=== PATIENT | male | born 1970 | race Caucasian/White ===

== ENCOUNTER → 2018-07-15 | Outpatient (CLI) | payer BC ==
--- NOTE | 2018-07-15 11:03 | DIAGNOSTIC IMAGING REPORT ---
L INJ MAJOR JNT SHLDR,HIP,KNEE CLINICAL HISTORY: LEFT HIP, DJD,2CC CELSTONE, 8CC MARCAINEpain COMPARISON STUDY: None FLUOROSCOPY TIME: 19 seconds. FINDINGS: Following description of procedure and informed consent, a 25-gauge needle was inserted to the left hip joint space. A test injection confirmed its intra-articular location. This is followed by the prescribed steroid combination injection. There are no complications. IMPRESSION: Successful therapeutic injection left hip. No complications at the time of the procedure. The above report was generated using voice recognition software. It may contain grammatical, syntax or spelling errors. Electronically signed by: Aldo Winters M.D. 07/15/2018 11:01 AM Dictated Date/Time: 07/15/2018 11:00 AM
== END | disposition home or self-care (01) ==
LOC: C.RADBC 09:56
PROVIDERS: ATTEND Orthopaedic Surgery
DX: M16.12 Unilateral primary osteoarthritis, left hip (principal)

== ENCOUNTER 2019-11-17 10:44 | Observation (INO) ==
--- NOTE | 2019-10-19 15:04 | PAT Medication Instructions ---
Medication Instructions Date of Service October 19, 2019 Home Medications Medication Instructions Recorded azithromycin 250 mg tablet See Rx Instructions PO .COMPLEX #6 10/14/19 tab promethazine-DM 6.25 mg-15 mg/5 mL See Rx Instructions PO Q6H PRN 10/14/19 oral syrup #200 ml Inhaler 1 puff INHALATION UD PRN ascorbic acid (vitamin C) [Vitamin C] 500 mg PO DAILY azithromycin 250 mg tablet See Rx Instructions PO .COMPLEX ibuprofen 200 - 400 mg PO UD PRN promethazine-DM 6.25 mg-15 mg/5 mL oral syrup See Rx Instructions PO Q6H PRN Continue as directed azithromycin 250 mg tablet See Rx Instructions PO .COMPLEX ASK your surgeon for instructions ibuprofen 200 - 400 mg PO UD PRN DO NOT take the morning of surgery ascorbic acid (vitamin C) [Vitamin C] 500 mg PO DAILY Take morning of surgery With a small sip of water, OTHERWISE NOTHING TO EAT OR DRINK AFTER MIDNIGHT: Inhaler 1 puff INHALATION UD PRN (if needed) promethazine-DM 6.25 mg-15 mg/5 mL oral syrup See Rx Instructions PO Q6H PRN (if needed) Take evening before surgery Inhaler 1 puff INHALATION UD PRN (if needed) promethazine-DM 6.25 mg-15 mg/5 mL oral syrup See Rx Instructions PO Q6H PRN (if needed) Other Notes If you have any questions please call us at [phone] or [phone] or [phone] or [phone]
--- NOTE | 2019-10-20 08:21 | Anesthesiology Consultation ---
Date of Service October 20, 2019 Assessment & Plan (1) Encounter for pre-operative examination: Chart Review Chart Review: Acceptable Risk for Surgery and Patient seen in Pre Admission Testing Teaching & Discussion Instructed NPO after midnight before surgery, except medications with 15 cc of water. Medication instructions provided according to the PAT guidelines. History Surgery Operation Date: 11/17/19 11:30 Proposed Procedures p Left Anterior Total Hip Arthroplasty - Pravin Dinh DO Height/Weight Height: 5 ft 9 in Weight: 89.6 kg Allergies Allergy/AdvReac Type Severity Reaction Status Date / Time No Known Allergies Allergy Verified 10/14/19 11:15 Medications Home Medications Medication Instructions Recorded Confirmed Last Taken Inhaler 1 puff INHALATION UD PRN 10/14/19 10/14/19 Unknown ascorbic acid (vitamin C) [Vitamin 500 mg PO DAILY 10/14/19 10/14/19 Unknown C] azithromycin 250 mg tablet See Rx Instructions PO .COMPLEX #6 10/14/19 10/14/19 Unknown tab ibuprofen 200 - 400 mg PO UD PRN 10/14/19 10/14/19 Unknown promethazine-DM 6.25 mg-15 mg/5 mL See Rx Instructions PO Q6H PRN 10/14/19 10/14/19 Unknown oral syrup #200 ml Past Medical History Medical History (Updated 10/21/19 @ 10:14 by Carrillo Sanders) Arthritis Bronchitis CURRENT "MILD," SEEN BY PCP, FINISHED Z PAC. almost entirely resolved as of [facility] appt 10/20. Lungs CTA on exam. HX BRONCHITIS 2-3 X YR - USES INHALER PRN WINTER MONTHS History of kidney stones X1/PASSED ON OWN Nausea and vomiting after administration of anesthetic agent Exercise / Class Metabolic Activity II 4-5 Yardwork/Stairs/Walk up hill (Denies CP or SOb with 1 FOS) Past Family History Family History Mother Breast cancer Grandfather Colon cancer Prostate cancer Other Family history of diabetes mellitus in grandmother Past Surgical History Surgical History History of wisdom tooth extraction Past Anesthesia History No Hx of Anesthesia Complications (other than PONV) and No Family Hx of Anesthesia Complications History of PONV No Hx of Motion Sickness and History of PONV Social History Smoking Status: Never smoker Do You Dip or Chew Tobacco: No Hx Alcohol Use: No Hx Substance Use: No substance use type: does not use Review of Systems Pt denies any recent chest pain, shortness of breath, palpitations, or fever. +Bronchitis, treated with z-pac and albuterol, still recovering. Physical Exam Vital Signs BP: 132/91 P: 87bpm SPO2: 96% RA T: 97.6 F R: 16 ENMT Mouth: + dental restorations (pt thinks a few crowns); no chipped teeth and no loose teeth Thyromental Distance: > or= 3.5 Finger Breadths (4) Mallampati Class: I Tonsils slightly enlarged. Neck normal visual inspection and + limited neck extension (mildly limited by pain) Respiratory normal respiratory effort Auscultation: lungs clear to auscultation bilaterally Cardiovascular Rate/Rhythm: regular rate and regular rhythm Heart Sounds: no murmur Vessels: no carotid bruit Extremities: no edema Testing Laboratory Results 10/20/19 08:31 10/20/19 08:31 PT 10.9 Seconds (9.0-12.0) 10/20/19 08:31 INR 1.1 (0.9-1.1) 10/20/19 08:31 APTT 28.7 Seconds (21.0-31.0) 10/20/19 08:31 Blood Type O Positive 10/20/19 08:31 Antibody Screen NEGATIVE 10/20/19 08:31 Electrocardiogram Date: 10/20/19 Findings: + NSR @ (77) LAFB. Chest X-Ray Date: 10/20/19 Findings: + NAD
--- NOTE | 2019-10-20 09:05 | XRay Report ---
XR chest Pre-admission PA/Lat CLINICAL HISTORY: Preoperative chest COMPARISON STUDY: No previous studies for comparison. FINDINGS: The cardiac and mediastinal contours are normal. There is no evidence of focal pulmonary co nsolidation. There is no evidence of failure. No pleural effusions are visualized.[Slight right hilar prominence is felt to be vascular. IMPRESSION: No active disease in the chest. Electronically signed by: Fernando Aragon M.D. 10/20/2019 9:03 AM
[2019-10-20 11:10] LABS: Basophils # (auto) 0.03 K/uL (0-0.2); Basophils % (auto) 0.5 %; Eosinophils # (auto) 0.13 K/uL (0-0.5); Eosinophils % (auto) 2.2 %; Hemoglobin 15.5 g/dL (14.0-18.0); Immature Granulocytes # (auto) 0.01 K/uL (0.00-0.02); Immature Granulocytes % (auto) 0.2 %; Lymphocytes # (auto) 1.47 K/uL (1.2-3.4); Lymphocytes % (auto) 25.2 %; Mean Corpuscular Hemoglobin 32.2 pg (25-34); Mean Corpuscular Hgb Conc 33.7 g/dL (32-36); Mean Corpuscular Volume 95.4 fL (80-100); Monocytes # (auto) 0.46 K/uL (0.11-0.59); Monocytes % (auto) 7.9 %; Neutrophils # (auto) 3.74 K/uL (1.4-6.5); Platelet Count 258 K/uL (130-400); RDW Coefficient of Variation 12.1 % (11.5-14.5); RDW Standard Deviation 42.4 fL (36.4-46.3); Red Blood Count 4.82 M/uL (4.7-6.1); White Blood Count 5.84 K/uL (4.8-10.8)
[2019-10-20 11:25] LABS: BUN Creatinine Ratio 14.5 (10-20); Calcium 8.8 mg/dl (8.5-10.1); Creatinine Clr Calc Pharmacy 121.9 ml/min; Est GFR (African American) 121.2; Est GFR (Non-African American) 104.6
[2019-10-20 11:27] LABS: INR 1.1 (0.9-1.1); Partial Thromboplastin Ratio 1.1; Partial Thromboplastin Time 28.7 Seconds (21.0-31.0); Prothrombin Time 10.9 Seconds (9.0-12.0)
--- NOTE | 2019-11-12 09:46 | History & Physical Report ---
Date of Service November 12, 2019 Assessment & Plan (1) Osteoarthritis of left hip: We will proceed with a left anterior total hip arthroplasty. Postoperatively he will be placed on aspirin for DVT prophylaxis and kept overnight in the hospital for postop medical management. [facility] plans [facility]. Present on Admission?: Yes History of Present Illness Chief Complaint: Primary osteoarthritis of the left hip Primary Care Provider: Rakan Tate DO Isaiah is a pleasant 49-year-old male who is been dealing with chronic increasing left hip and groin pain. X-rays and clinical examination have been diagnostic for primary osteoarthritis of the left hip. After failing conservative treatment, he has elected to proceed with a left anterior total hip arthroplasty. Allergies Allergy/AdvReac Type Severity Reaction Status Date / Time No Known Allergies Allergy Verified 10/14/19 11:15 Home Medications Home Medications Medication Instructions Recorded Confirmed Type Inhaler 1 puff INHALATION UD PRN 10/14/19 10/14/19 History ascorbic acid (vitamin C) [Vitamin 500 mg PO DAILY 10/14/19 10/14/19 History C] azithromycin 250 mg tablet See Rx Instructions PO .COMPLEX #6 10/14/19 10/14/19 Rx tab ibuprofen 200 - 400 mg PO UD PRN 10/14/19 10/14/19 History promethazine-DM 6.25 mg-15 mg/5 mL See Rx Instructions PO Q6H PRN 10/14/19 10/14/19 Rx oral syrup #200 ml Past Med/Surg History Medical History Arthritis Bronchitis CURRENT "MILD," SEEN BY PCP, FINISHED Z PAC. almost entirely resolved as of PAT appt 10/20. Lungs CTA on exam. 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 Feels Safe at Home: Yes Smoking Status: Never smoker Hx Alcohol Use: No Hx Substance Use: No Childhood Exposure to Second-Hand Smoke: Yes Dental Care, Regularly: Yes Physical Activity Frequency: Does not Exercise Review of Systems All systems reviewed & are unremarkable except as noted in HPI & below Physical Exam Constitutional: WD/WN, vitals as above Eyes: PERRL, conjunctivae normal, anicteric sclerae ENMT: external ear and nose normal, oropharynx normal Neck: trachea midline, no thyromegaly Respiratory: normal respiratory effort Cardiovascular: RRR, no murmur, no edema Gastrointestinal (Abdomen): normal bowel sounds, soft, nontender, no hepatosplenomegaly Musculoskeletal: Physical examination of the left hip reveals decreased range of motion with flexion, internal and external rotation. There is significant groin pain with forced internal rotation of the hip his leg lengths are essentially equal. Psychiatric: A+Ox3, euthymic affect Results & Data Diagnostic Findings Radiographs of the left hip and pelvis demonstrate advanced osteoarthritis with joint space narrowing osteophyte formation and [id number] articulation.
[~2019-11-17 10:44] MED LIST: ACETAMINOPHEN 500 MG TAB PO SCH; BUPIVACAINE 0.5 % 5 MG/1 ML PF 10ML VIAL ONE; CEFAZOLIN 2000MG 2,000 MG/15 ML SYR IV SCH; FAMOTIDINE 20 MG TAB PO SCH; GABAPENTIN 300 MG CAP PO SCH; LR 500ML BOLUS, THEN 15ML/HR IV SCH; LR 60ML/HR IV SCH; ROPIVACAINE 0.5% HCL/PF 150 MG, BUPIVACAINE 0.5% MPF 30 ML, EPINEPHrine 30MG/30ML (OR U... INSTIL SCH; TRANEXAMIC ACID 1,000 MG **IV Intra-op IV SCH; TRANEXAMIC ACID 1,000 MG **IV Pre-op IV SCH; dexAMETHasone 4 MG TAB PO SCH
[2019-11-17] MEDS ORDERED: TRANEXAMIC ACID / 0.7% NACL 1000MG/100ML BAG IV ONE (11:30)
[2019-11-17] MEDS ORDERED: MIDAZOLAM HCL 1 MG/ML 2ML VIAL ONE ×3 (12:04→13:38)
--- NOTE | 2019-11-17 12:08 | History & Physical Bridge Note ---
Date of Service November 17, 2019 History & Physical Bridge Note I have examined the patient, reviewed the History & Physical and in the interval since the performance of the History & Physical I have noted the following changes of clinical significance: no changes noted
[2019-11-17] MEDS ORDERED: ONDANSETRON INJ 2 MG/ML 2 ML VIAL IV PRN ×2 (12:20→16:25)
[2019-11-17] MEDS ORDERED: ePHEDrine sulfate 50 MG/ML AMP IV PRN (12:20)
[2019-11-17] MEDS ORDERED: fentaNYL citrate 100 MCG/2 ML VIAL IV PRN (12:20)
[2019-11-17] MEDS ORDERED: ATROPINE SULFATE 0.1 MG/ML 10ML SYR IV PRN (12:20)
[2019-11-17] MEDS ORDERED: HYDROmorphone INJ 1 MG/ML SYRINGE IV PRN (12:20)
[2019-11-17] MEDS ORDERED: ORTHO JOINT ANESTHETIC ONE (12:43)
[2019-11-17] MEDS ORDERED: LIDOCAINE HCL 2% 2 ML VIAL/AMP(20MG/ML) INFIL ONE (14:01)
[2019-11-17] MEDS ORDERED: PROPOFOL IV EMULSION 10 MG/ML 20 ML VIAL IV ONE ×2 (14:01→14:26)
--- NOTE | 2019-11-17 14:59 | Operative Report ---
PG Post Operative Report Pre & Post Diagnosis Operation Date: 11/17/19 13:20 Pre-Op Diagnosis: LEFT HIP OSTEOARTHRITIS Post-Op Diagnosis: LEFT HIP OSTEOARTHRITIS I identified the patient and participated in the time-out.: Yes Procedure Operation Date: 11/17/19 13:20 Actual Procedures p Left Anterior Total Hip Arthroplasty(Left) - Pravin Dinh DO Surgeon Pravin Dinh, Print Decorator Pravin Kevin PAC Estimated Blood Loss 250 Findings Consistent with Post-Op Diagnosis Specimens Left femoral head Complications none Disposition Disposition: Recovery Room Indications Isaiah is a pleasant 49-year-old male who presented to my office with chronic increasing left hip pain. X-rays and clinical examination were diagnostic for primary osteoarthritis of the left hip. After failing conservative treatment, he elected to proceed with a left anterior total hip arthroplasty. Description of Procedure Implants used Biomet Taperloc total hip arthroplasty system with a size 10 high offset Taperloc stem, a 50 mm G7 cup with a 25mm screw, an E1 polyethylene liner, a 36 mm ceramic head with a -3 neck. Patient arrived at the hospital for the above procedure. They were seen in the preoperative holding area and the operative extremity was identified and signed. They were given a spinal anesthetic. They were given a preoperative antibiotic and TXA. They were taken back To the operating room and laid on the table in the supine position. The leg was brought out through a Puristst leg positioner. The hip was then prepped and draped in sterile fashion. A timeout was done and the patient and the operative extremity was properly identified. An anterior approach was used. Dissection was taken down through the fascia and the tensor muscle belly was retracted laterally and the rectus was retracted m edially. The circumflex vessels were identified and ligated. The capsule was then incised and tagged for later repair. The femoral neck was then cut and the femoral head was removed. The acetabulum was exposed. Time was spent doing a complete circumferential labral release. Sequential reaming of the acetabulum up to a size 49 reamer was done. Final reamings were done under fluoroscopy to ensure appropriate version. A Biomet 50 mm G7 cup was then impacted into place. A single 25 mm screw was placed. The E1 polyethylene liner was then snapped into place. Surrounding soft tissues were then injected with 100 cc of an orthopedic pain control cocktail. The proximal femur was then exposed. Sequential broaching up to a size 10 broach was done. Off that broach a size 36 head with a -3 neck was trialed. The hip was reduced and fluoroscopic images showed anatomic alignment of the implants in acceptable length. The broach was removed. The final size 10 high offset Taperloc stem was then impacted into place. A ceramic 36 mm head with a -3 neck was then impacted into place in the hip was reduced. Final fluoroscopic images showed anatomic reduction of the hip. The capsule was then closed with #1 Vicryl suture. A dilute betadyne lavage was then done for 3 minutes. The joint was then irrigated with normal saline solution. The fascia was closed with #1 PDS suture. Skin was closed with 2-0 Vicryl, mary, and a Saima VAC dressing. The patient was then transferred to a hospital bed and taken to the post anesthesia care unit in stable condition. They tolerated the procedure well. I attest to the content of the Intraoperative Record and any orders documented therein. Any exceptions are noted below.
--- NOTE | 2019-11-17 15:07 | Fluoroscopy Report ---
FL hip LT 1V CLINICAL HISTORY: LEFT ANTERIOR LETTY COMPARISON STUDY: Pelvis radiograph July 03, 2018. FLUOROSCOPY TIME: 26 seconds. FLUOROSCOPIC IMAGES: 1 FINDINGS: This image demonstrates anatomic alignment of the total left arthroplasty. Hardware is inta ct. There is no fracture or unexpected radiopaque foreign body. IMPRESSION: Expected findings following total left hip arthroplasty. ACT 112: Negative or not required by law. Electronically signed by: Kranthi Ryan M.D. 11/17/2019 3:05 PM
--- NOTE | 2019-11-17 15:45 | XRay Report ---
XR hip 1V LT w pelvis CLINICAL HISTORY: Postoperative evaluation. COMPARISON: Pelvis radiograph August 20, 2019. FINDINGS: Alignment of the total left hip arthroplasty is anatomic. There is no periprosthetic fract ure or unexpected radiopaque foreign body. Skin mary are noted. Right hip osteoarthritis is noted. IMPRESSION: Expected findings following total left hip arthroplasty. ACT 112: Negative or not required by law. Electronically signed by: Kranthi Ryan M.D. 11/17/2019 3:44 PM
--- NOTE | 2019-11-17 15:52 | Anesthesiology Progress Note ---
Date of Service November 17, 2019 Anesthesia Post Procedure Vital Signs Vital Signs: Temp Pulse Pulse Resp BP BP Pulse Ox 11/17/19 15:40 36.5 C 83 16 125/85 95 11/17/19 15:30 84 18 118/76 98 11/17/19 15:24 36.6 C 83 18 104/78 95 11/17/19 11:34 36.7 C 79 18 128/78 96 Transfer of Care Handoff Completed per policy Notes Mental Status: alert / awake / arousable and participated in evaluation Patient Amnestic to Procedure: Yes Nausea / Vomiting: adequately controlled Pain: adequately controlled Airway Patency, RR, SpO2: stable & adequate BP & HR: stable & adequate Hydration State: stable & adequate Neuraxial Anesthesia: was administered and sensory block is resolving Anesthetic Complications: no major complications apparent and Pt Satisfied with anesthetic care
[2019-11-17] MEDS ORDERED: MAGNESIUM HYDROXIDE SUSP 30 ML UDC PO PRN (16:25)
[2019-11-17] MEDS ORDERED: HYDROmorphone INJ 0.5 MG/0.5 ML SYR IV PRN (16:25)
[2019-11-17] MEDS ORDERED: NALOXONE HCL 0.4 MG/1 ML VIAL/CARP IV PRN (16:25)
[2019-11-17] MEDS ORDERED: bisacodyL 10 MG SUPP PR PRN (16:25)
[2019-11-17] MEDS ORDERED: METOCLOPRAMIDE HCL INJ 5 MG/ML 2 ML VIAL IV PRN (16:25)
[2019-11-17] MEDS ORDERED: OXYCODONE HCL IR 5 MG TAB (IMMEDIATE RELEASE) PO PRN (16:25)
[2019-11-17] MEDS: SODIUM CHLORIDE 0.9% 1000ML 1,000 ML IV SCH (18:04)
[2019-11-17] MEDS: KETOROLAC 30 MG/ML VIAL IV SCH (18:04)
[2019-11-17] MEDS: DOCUSATE SODIUM 100 MG CAP PO SCH (20:23)
[2019-11-17] MEDS: ASPIRIN 81 MG ECTAB PO SCH (20:23)
[2019-11-17] MEDS: CEFAZOLIN 2000MG 2,000 MG/15 ML SYR IV SCH (20:26)
[2019-11-17] MEDS ORDERED: SENNA 8.6 MG TAB PO SCH (21:00)
[2019-11-17] MEDS: ACETAMINOPHEN 500 MG TAB PO SCH (21:43)
[2019-11-18] MEDS: KETOROLAC 30 MG/ML VIAL IV SCH ×2 (00:03→05:43)
[2019-11-18] MEDS: CEFAZOLIN 2000MG 2,000 MG/15 ML SYR IV SCH (04:00)
[2019-11-18] MEDS: SODIUM CHLORIDE 0.9% 1000ML 1,000 ML IV SCH (04:01)
[2019-11-18] MEDS: ACETAMINOPHEN 500 MG TAB PO SCH (05:43)
[2019-11-18 06:05] LABS: Hematocrit (blood only) 42.1 % (42-52); Hemoglobin 14.4 g/dL (14.0-18.0); Immature Granulocytes # (auto) 0.05 K/uL (0.00-0.02); Immature Granulocytes % (auto) 0.4 %; Lymphocytes # (auto) 1.04 K/uL (1.2-3.4); Lymphocytes % (auto) 7.3 %; Mean Corpuscular Hemoglobin 31.9 pg (25-34); Mean Corpuscular Hgb Conc 34.2 g/dL (32-36); Mean Corpuscular Volume 93.3 fL (80-100); Mean Platelet Volume 9.6 fL (7.4-10.4); Monocytes # (auto) 0.95 K/uL (0.11-0.59); Monocytes % (auto) 6.7 %; Neutrophils # (auto) 12.17 K/uL (1.4-6.5); Neutrophils % (auto) 85.6 %; Platelet Count 218 K/uL (130-400); RDW Coefficient of Variation 12.1 % (11.5-14.5); RDW Standard Deviation 40.9 fL (36.4-46.3); Red Blood Count 4.51 M/uL (4.7-6.1); White Blood Count 14.21 K/uL (4.8-10.8)
[2019-11-18 06:22] LABS: BUN Creatinine Ratio 25.3 (10-20); Calcium 8.4 mg/dl (8.5-10.1); Creatinine Clr Calc Pharmacy 118.6 ml/min; Est GFR (African American) 119.2; Est GFR (Non-African American) 102.8; Potassium 4.1 mmol/L (3.5-5.1)
--- NOTE | 2019-11-18 06:35 | Orthopedic Progress Note ---
Date of Service November 18, 2019 Assessment & Plan (1) History of total left hip arthroplasty: Overall he is doing very well. Is not having too much pain in the left hip. He will be seen by physical therapy today for ambulation and range of motion exercises. He is on aspirin for DVT prophylaxis. He can be discharged home later today. He will follow-up with orthopedics in 2 weeks. Present on Admission?: No Subjective Isaiah was seen and examined at bedside this morning. Overall he is doing fairly well. He has been up and ambulating to the bathroom but not much more than that. He is happy with his progress to this point. He has no complaints. Physical Exam Musculoskeletal: On physical examination of the left hip, the Saima VAC dressing is to suction. His leg lengths are equal. He has active dorsiflexion and plantarflexion of his left ankle. Sensation is intact throughout. Results & Data Vital Signs (Past 12 Hours) Vital Signs Temp Pulse Resp BP Pulse Ox 11/18/19 02:54 36.4 C L 61 16 106/69 96 11/17/19 23:43 36.4 C L 72 16 107/75 96 11/17/19 20:45 36.6 C 87 16 123/80 96 11/17/19 19:06 36.5 C 86 16 120/78 96 Laboratory Results H & H 10/20/19 11/18/19 Range/Units 08:31 05:40 Hgb 15.5 14.4 (14.0-18.0) g/dL Hct 46.0 42.1 (42-52) % Coagulation 10/20/19 Range/Units 08:31 INR 1.1 (0.9-1.1) Diagnostic Findings Postoperative x-rays of the left hip show the prosthesis to be in anatomic al ignment without any evidence of fracture, dislocation, or loosening. PG Care Time/CCT Total # of Minutes Spent Total Time Spent with Patient: Total time spent is greater than 50% in coordination of care (as documented) at patient's floor/unit and/or counseling patient:
--- NOTE | 2019-11-18 06:39 | Discharge Summary ---
Date of Service November 18, 2019 Admission HPI Per Admitting Provider Isaiah is a pleasant 49-year-old male who is been dealing with chronic increasing left hip and groin pain. X-rays and clinical examination have been diagnostic for primary osteoarthritis of the left hip. After failing conservative treatment, he has elected to proceed with a left anterior total hip arthroplasty. Principal Diagnosis Left total hip arthroplasty Discharge Data Allergies Allergy/AdvReac Type Severity Reaction Status Date / Time No Known Allergies Allergy Verified 10/14/19 11:15 Consultations 11/18/19 08:00 Consult Case Management - Discharge Planning Routine Procedures Performed Operation Date: 11/17/19 13:20 Actual Procedures p Left Anterior Total Hip Arthroplasty(Left) - Pravin Dinh DO Ordered Studies 11/17/19 12:53 FL fluoroscopy <1hr Routine FL hip LT 1V Routine Hospital Course (1) History of total left hip arthroplasty: On November 17, 2020 Isaiah arrived at [facility] and underwent a left anterior total hip arthroplasty without complication. He had a spinal anesthetic. Postoperatively he was started on aspirin for DVT prophylaxis and discharged to general orthopedic floors. His hospital course was uneventful. On postop day #1 his H&H was stable and his pain was well controlled. He was able to participate well with physical therapy doing ambulation and range of motion exercises. He was then discharged to home. He will follow-up with orthopedics in 2 weeks. Total Time Total Time Spent Total Time Spent (In Minutes): 20 Discharge Plan Discharge Items Reason For Visit: LEFT HIP OSTEOARTHRITIS Discharge Diagnosis: Left total hip arthroplasty Activity: As commented below Non-emergency contact: Surgeon Call non-emergency contact if: your wound has increased redness and your wound has increased drainage Follow-up/Referrals: Rakan Tate DO [Primary Care Provider] - Diet: Regular Addtl Attending Provider Instructions: Activity and Therapy Recommendations: * If you are using [facility] then therapy will be provided at your home until they feel you have accomplished all of your goals. * If you are using [facility] then Physical Therapy will be provided until they feel you are ready to start Outpatient Physical Therapy. * If you are not using home therapy then Outpatient Physical Therapy should start about 3-5 days from your day of surgery. Therapy will last about 6-10 weeks * You were shown a series of exercises in the hospital. Do these exercises three times each day including the exercises you were shown in physical therapy. * Get up and walk several times each day.~ For the first four weeks, try not to stand or walk for more than one hour at a time. If you do stand or walk for more than one hour, you will not hurt anything, but your leg will likely swell.~~ * As you feel comfortable, you may change from the walker or crutches to a cane and~then to independent walking. Medications: * Narcotic You will likely be sent home from the hospital with a prescription for the narcotic pain medication that worked best throughout your stay. * Aspirin Most patients will be required to take Aspirin 81mg twice a day for 6 weeks after surgery. This is obtained [id number] and a prescription is not necessary. * Other medications may be prescribed for specific circumstances. If you have any questions, please call the office at . * Resume previous home medications unless otherwise instructed TEDs/Elastic Stockings: The white elastic stockings help limit swelling and prevent blood clots from forming in your legs. The more you wear them, the more they work. Wear them for six weeks. Dressing Care: You will likely have a purple VAC dressing after surgery. This dressing will keep the incision dry and promote early healing. After about 7 days the batteries will wear out and the VAC will lose suction. Simply remove the dressing at that time and throw everything away, including the small suction machine. Then, you may leave the mary open to air or cover them with a dry dressing so they do not rub on your pants. The mary will be removed at your 2 week follow-up appointment. Showering: You may shower immediately with the purple VAC dressing. Let the shower spray hit your opposite side and slowly pat the plastic dry. Do not soak the dressing. After the dressing is removed you may shower normally with the mary exposed. Let soapy water run over the mary and pat them dry. Things To Watch For: * Drainage from the incision site that occurs more than one week after your surgery. * Increased redness at the incision site. * Fever above 102 degrees Fahrenheit. * Unusual chest pain or shortness of breath. * Call [facility] at with any of the above problems Follow-Up Visit: Follow-up with Dr. Dinh 2-3 weeks after your day of surgery. An appointment was probably scheduled when you signed-up for surgery in the office. If you have any questions call Office Instructions: More detailed instructions as well as Frequently Asked Questions were provided in a folder by our office when you signed-up for surgery. Please review these instructions when you get home. If you have any further questions or concerns, please feel free to call the office at [phone] Pending Studies at Discharge: No Stand-Alone Forms: [facility] Subblime, Smoking Cessation Medications and DC Order Prescriptions: New oxycodone 5 mg Tablet 5 mg PO Q4H PRN (Reason: pain) Qty: 30 RF: 0 aspirin [Ecotrin Low Strength] 81 mg Tablet,Delayed Release (Dr/Ec) 81 mg PO BID 42 Days Qty: 0 RF: 0 Continued ibuprofen 200 mg Tablet 200 - 400 mg PO UD PRN (Reason: Pain) RF: 0 Admission Data Admit Date/Time: 11/17/19 15:25 Attending Provider: Pravin Dinh Admit Provider: Pravin Dinh Primary Care Provider: Rakan Tate
[2019-11-18] MEDS ORDERED: dexAMETHasone 4 MG TAB PO SCH (08:00)
[2019-11-18] MEDS: DOCUSATE SODIUM 100 MG CAP PO SCH (08:45)
[2019-11-18] MEDS: ASPIRIN 81 MG ECTAB PO SCH (08:45)
[2019-11-18] MEDS ORDERED: MULTIVITAMIN TAB PO SCH (09:00)
== END 2019-11-18 11:30 | disposition home or self-care (01) | DRG 470 ==
LOC: ASU 10:44 → INTOOBSV 15:25 → 3E 15:25

== ENCOUNTER 2020-01-08 10:51 | Observation (INO) ==
--- NOTE | 2019-12-28 15:58 | PAT Medication Instructions ---
Medication Instructions Date of Service December 28, 2019 Home Medications Medication Instructions Recorded aspirin [Ecotrin Low Strength] 81 mg PO BID 42 Days #0 tab 11/18/19 albuterol sulfate 90 mcg/actuation See Rx Instructions INHALATION 12/24/19 aerosol inhaler .COMPLEX PRN #18 gm amoxicillin 875 mg tablet 875 mg PO BID #14 tab 12/28/19 prednisone 20 mg tablet 20 mg PO DAILY #18 tab 12/28/19 ibuprofen 200 - 400 mg PO UD PRN Continue as directed albuterol sulfate 90 mcg/actuation aerosol inhaler INHALATION .COMPLEX PRN amoxicillin 875 mg tablet 875 mg PO BID prednisone 20 mg tablet 20 mg PO DAILY ASK your surgeon for instructions ibuprofen 200 - 400 mg PO UD PRN aspirin [Ecotrin Low Strength] 81 mg PO BID Other Notes NOTHING TO EAT OR DRINK AFTER MIDNIGHT THE NIGHT BEFORE SURGERY. NO FOOD OR DRINK MORNING OF SURGERY. If you have any questions please call us at [phone] or [phone] or [phone] or [phone]
--- NOTE | 2019-12-29 08:32 | Anesthesiology Consultation ---
Date of Service December 29, 2019 Assessment & Plan (1) Encounter for pre-operative examination: Chart Review Chart Review: Acceptable Risk for Surgery and Patient seen in Pre Admission Testing Teaching & Discussion Instructed NPO after midnight before surgery, except medications with 15 cc of water. Medication instructions provided according to the PAT guidelines. History Surgery Operation Date: 01/08/20 07:00 Proposed Procedures p Right Anterior Total Hip Arthroplasty - Pravin Dinh, Height/Weight Height: 5 ft 8 in Weight: 93.9 kg Allergies Allergy/AdvReac Type Severity Reaction Status Date / Time No Known Allergies Allergy Verified 12/28/19 11:10 Medications Home Medications Medication Instructions Recorded Confirmed Last Taken ibuprofen 200 - 400 mg PO UD PRN 10/14/19 12/28/19 Unknown aspirin [Ecotrin Low Strength] 81 mg PO BID 42 Days #0 tab 11/18/19 12/28/19 Unknown albuterol sulfate 90 mcg/actuation See Rx Instructions INHALATION 12/24/19 12/28/19 Unknown aerosol inhaler .COMPLEX PRN #18 gm amoxicillin 875 mg tablet 875 mg PO BID #14 tab 12/28/19 12/28/19 Unknown prednisone 20 mg tablet 20 mg PO DAILY #18 tab 12/28/19 12/28/19 Unknown amoxicillin 500 mg tablet 2,000 mg PO ONCE #4 tab 12/29/19 Unknown Past Medical History Medical History (Updated 12/29/19 @ 08:26 by Carrillo Sanders) Arthritis History of kidney stones X1/PASSED ON OWN Respiratory infection CURRENTLY, MOSTLY SINUS CONGESTION, SEEN BY PCP AND BEING TREATED WITH PREDNISONE TAPER, ALBUTEROL AND AMOXIL. Exercise / Class Metabolic Activity II 4-5 Yardwork/Stairs/Walk up hill (LIMITED BY HIP PAIN, STILL DOING PT FOR L HIP LETTY) Past Surgical History Surgical History History of total left hip arthroplasty (~10/2019) History of wisdom tooth extraction Nausea and vomiting after administration of anesthetic agent Past Anesthesia History No Hx of Anesthesia Complications and No Family Hx of Anesthesia Complications History of PONV No Hx of Motion Sickness and History of PONV (JUST WITH WTE) Social History Smoking Status: Never smoker Do You Dip or Chew Tobacco: No Hx Alcohol Use: No Hx Substance Use: No substance use type: does not use Review of Systems Pt denies any recent chest pain, shortness of breath, palpitations, fever. +sinus congestion/URI Physical Exam Vital Signs BP: 128/84 P: 79bpm SPO2: 95% RA T: 98.6 F R: 12 ENMT Mouth: no dental restorations, no chipped teeth and no loose teeth Thyromental Distance: > or= 3.5 Finger Breadths (4) Mallampati Class: I Mildly edematous tonsils. Neck normal visual inspection; neck extension not limited Respiratory normal respiratory effort Auscultation: lungs clear to auscultation bilaterally Cardiovascular Rate/Rhythm: regular rate and regular rhythm Heart Sounds: no murmur Extremities: no edema Testing Laboratory Results 12/29/19 08:18 12/29/19 08:18 PT 10.2 Seconds (9.0-12.0) 12/29/19 08:18 INR 1.0 (0.9-1.1) 12/29/19 08:18 APTT 26.5 Seconds (21.0-31.0) 12/29/19 08:18 Blood Type O Positive 12/29/19 08:18 Antibody Screen NEGATIVE 12/29/19 08:18 Electrocardiogram Date: 10/20/19 Findings: + NSR @ () LAFB. Chest X-Ray Date: 10/20/19 Findings: + NAD
[2019-12-29 10:05] LABS: Basophils # (auto) 0.02 K/uL (0-0.2); Basophils % (auto) 0.2 %; Eosinophils # (auto) 0.03 K/uL (0-0.5); Eosinophils % (auto) 0.3 %; Hematocrit (blood only) 43.2 % (42-52); Hemoglobin 14.6 g/dL (14.0-18.0); Immature Granulocytes # (auto) 0.12 K/uL (0.00-0.02); Immature Granulocytes % (auto) 1.2 %; Lymphocytes # (auto) 1.54 K/uL (1.2-3.4); Lymphocytes % (auto) 14.8 %; Mean Corpuscular Hemoglobin 31.4 pg (25-34); Mean Corpuscular Hgb Conc 33.8 g/dL (32-36); Mean Corpuscular Volume 92.9 fL (80-100); Mean Platelet Volume 9.8 fL (7.4-10.4); Monocytes # (auto) 0.64 K/uL (0.11-0.59); Monocytes % (auto) 6.2 %; Neutrophils # (auto) 8.05 K/uL (1.4-6.5); Neutrophils % (auto) 77.3 %; Platelet Count 276 K/uL (130-400); RDW Coefficient of Variation 12.2 % (11.5-14.5); RDW Standard Deviation 41.3 fL (36.4-46.3); Red Blood Count 4.65 M/uL (4.7-6.1)
[2019-12-29 10:13] LABS: BUN Creatinine Ratio 28.2 (10-20); Calcium 8.8 mg/dl (8.5-10.1); Creatinine Clr Calc Pharmacy 127.4 ml/min; Est GFR (African American) 122.8; Potassium 3.8 mmol/L (3.5-5.1)
[2019-12-29 10:26] LABS: Partial Thromboplastin Time 26.5 Seconds (21.0-31.0); Prothrombin Time 10.2 Seconds (9.0-12.0)
--- NOTE | 2020-01-06 07:20 | History & Physical Report ---
Date of Service January 06, 2020 Assessment & Plan (1) Osteoarthritis of right hip: We will proceed with a right anterior total hip arthroplasty. Postoperatively he will be kept overnight in the hospital for postoperative medical management. He will be started on aspirin for DVT prophylaxis. He plans to [facility] upon discharge. Present on Admission?: Yes History of Present Illness Chief Complaint: Primary osteoarthritis of the right hip Primary Care Provider: Rakan Tate DO Isaiah is a pleasant 49-year-old male who was dealing with severe bilateral hip and groin pain. X-rays and clinical examination were diagnostic for primary osteoarthritis of both hips. I did a left total hip arthroplasty on him about 6 weeks ago on November 17. He did very well with that. He has elected to proceed with a right anterior total hip arthroplasty. Allergies Allergy/AdvReac Type Severity Reaction Status Date / Time No Known Allergies Allergy Verified 12/28/19 11:10 Home Medications Home Medications Medication Instructions Recorded Confirmed Type ibuprofen 200 - 400 mg PO UD PRN 10/14/19 12/28/19 History albuterol sulfate 90 mcg/actuation See Rx Instructions INHALATION 12/24/19 12/28/19 Rx aerosol inhaler .COMPLEX PRN #18 gm amoxicillin 875 mg tablet 875 mg PO BID #14 tab 12/28/19 12/28/19 Rx prednisone 20 mg tablet 20 mg PO DAILY #18 tab 12/28/19 12/28/19 Rx amoxicillin 500 mg tablet 2,000 mg PO ONCE #4 tab 12/29/19 Rx Past Med/Surg History Medical History Arthritis History of kidney stones X1/PASSED ON OWN Respiratory infection CURRENTLY, MOSTLY SINUS CONGESTION, SEEN BY PCP AND BEING TREATED WITH PREDNISONE TAPER, ALBUTEROL AND AMOXIL. Surgical History History of total left hip arthroplasty (~10/2019) History of wisdom tooth extraction Nausea and vomiting after administration of anesthetic agent Family History Mother Breast cancer Grandfather Colon cancer Prostate cancer Other Family history of diabetes mellitus in grandmother Denies family history of Ovarian cancer Myocardial infarction Stroke Social History (Reviewed 01/06/20 @ 07:18 by JEANIE Lopez Preferred Language: Swiss Communication Ability: Effective Visual Impairment: No Limitations Hearing Ability: Normal Education Instructor Required: No Beliefs That Will Affect Care: None marital status: Single Current Living Situation: Alone current occupational status: employed 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 Feels Safe at Home: Yes Smoking Status: Never smoker Hx Alcohol Use: No Hx Substance Use: No Childhood Exposure to Second-Hand Smoke: Yes Dental Care, Regularly: Yes Physical Activity Frequency: Does not Exercise Seatbelt Use: always Sunscreen Use: Yes Review of Systems All systems reviewed & are unremarkable except as noted in HPI & below Physical Exam Constitutional: WD/WN, vitals as above Eyes: PERRL, conjunctivae normal, anicteric sclerae ENMT: external ear and nose normal, oropharynx normal Neck: trachea midline, no thyromegaly Respiratory: normal respiratory effort Cardiovascular: RRR, no murmur, no edema Gastrointestinal (Abdomen): normal bowel sounds, soft, nontender, no hepatosplenomegaly Musculoskeletal: Physical examination of the right hip reveals decreased range of motion with flexion, internal and external rotation. There is significant groin pain with forced internal rotation of the hip his leg lengths are essentially equal. Psychiatric: A+Ox3, euthymic affect Results & Data Diagnostic Findings Radiographs of the right hip and pelvis demonstrate advanced osteoarthritis with joint space narrowing osteophyte formation and [id number] articulation.
[~2020-01-08 10:51] MED LIST changes: -GABAPENTIN 300 MG CAP PO SCH; +GABAPENTIN 900 MG DOSE PO SCH
--- NOTE | 2020-01-08 11:10 | History & Physical Bridge Note ---
Date of Service January 08, 2020 History & Physical Bridge Note I have examined the patient, reviewed the History & Physical and in the interval since the performance of the History & Physical I have noted the following changes of clinical significance: no changes noted
[2020-01-08] MEDS ORDERED: MIDAZOLAM HCL 1 MG/ML 2ML VIAL ONE (11:41)
[2020-01-08] MEDS ORDERED: LIDOCAINE HCL 2% 2 ML VIAL/AMP(20MG/ML) INFIL ONE (11:41)
[2020-01-08] MEDS ORDERED: PROPOFOL IV EMULSION 10 MG/ML 20 ML VIAL IV ONE (11:41)
[2020-01-08] MEDS ORDERED: ORTHO JOINT ANESTHETIC ONE (11:49)
[2020-01-08] MEDS ORDERED: ONDANSETRON INJ 2 MG/ML 2 ML VIAL IV PRN ×2 (12:01→15:28)
[2020-01-08] MEDS ORDERED: LABETALOL HCL IV 5 MG/ML 20ML IV PRN (12:01)
[2020-01-08] MEDS ORDERED: ATROPINE SULFATE 0.1 MG/ML 10ML SYR IV PRN (12:01)
[2020-01-08] MEDS ORDERED: fentaNYL citrate 100 MCG/2 ML VIAL IV PRN (12:01)
[2020-01-08] MEDS ORDERED: KETOROLAC 30 MG/ML VIAL IV PRN (12:01)
--- NOTE | 2020-01-08 13:54 | Operative Report ---
PG Post Operative Report Pre & Post Diagnosis Operation Date: 01/08/20 13:30 Pre-Op Diagnosis: RIGHT HIP DEGENERATIVE JOINT DISEASE Post-Op Diagnosis: RIGHT HIP DEGENERATIVE JOINT DISEASE I identified the patient and participated in the time-out.: Yes Procedure Operation Date: 01/08/20 13:30 Actual Procedures p Right Anterior Total Hip Arthroplasty(Right) - Pravin Dinh DO Surgeon Pravin Dinh DO Bevel Polisher Pravin Kevin PAC Estimated Blood Loss 200 Findings Consistent with Post-Op Diagnosis Specimens Right femoral head Complications none Disposition Disposition: Recovery Room Indications Isaiah is a pleasant 49-year-old male who is been dealing with chronic bilateral hip pain. X-rays and clinical examination showed bilateral osteoarthritis of the hips. I did a left total hip arthroplasty on him 6 weeks ago. He did very well with that. He has elected to proceed with a right anterior total hip arthroplasty. Description of Procedure Implants used I used a Biomet Taperloc total hip arthroplasty system with a size 10 high offset Taperloc stem, a 50 mm G7 cup with a 25mm screw, an E1 polyethylene liner, a 36 mm ceramic head with a -3 neck. Isaiah arrived at the hospital for the above procedure. He was seen in the preoperative holding area and the operative extremity was identified and signed. He was given a spinal anesthetic, a preoperative antibiotic, and TXA. He was then taken back to the operating room and laid on the table in the supine position. He was given basic sedation. The operative leg was secured to a Puristst leg positioner. The hip was then prepped and draped in sterile fashion. A timeout was done and the patient and the operative extremity was properly identified. An anterior approach was used. Dissection was taken down through the fascia and the tensor muscle belly was retracted laterally and the rectus was retracted medially. The circumflex vessels were identified and ligated. The capsule was then incised and tagged for later repair. The femoral neck was then cut and the femoral head was removed. The acetabulum was exposed. Time was spent doing a complete circumferential labral release. Sequential reaming of the acetabulum up to a size 49 reamer was done. Final reamings were done under fluoroscopy to ensure appropriate version. A Biomet 50 mm G7 cup was then impacted into place. A single 25 mm screw was placed. The E1 polyethylene liner was then snapped into place. Surrounding soft tissues were then injected with 100 cc of an orthopedic pain control cocktail. The proximal femur was then exposed. Sequential broaching up to a size 10 broach was done. Off that broach a size 36 head with a -3 neck was trialed. The hip was reduced and fluoroscopic images showed anatomic alignment of the implants in acceptable length. The broach was removed. The final size 10 high offset Taperloc stem was then impacted into place. A ceramic 36 mm head with a -3 neck was then impacted onto the stem and the hip was reduced. Final fluoroscopic images showed anatomic alignment of the hip. The capsule was then closed with #1 Vicryl suture. A dilute betadyne lavage was then done for 3 minutes. The joint was then irrigated with normal saline solution. The fascia was closed with #1 PDS suture. Skin was closed with 2-0 Vicryl, mary, and a Saima VAC dressing. He was then transferred to a hospital bed and taken to the post anesthesia care unit in stable condition. He tolerated the procedure well. I attest to the content of the Intraoperative Record and any orders documented therein. Any exceptions are noted below.
--- NOTE | 2020-01-08 14:01 | Fluoroscopy Report ---
FL hip RT 1V CLINICAL HISTORY: RT ANTERIOR TOTAL HIP ARTHROPLASTY COMPARISON STUDY: 01/04/2020 FLUOROSCOPY TIME: 25 seconds. NUMBER OF FLUOROSCOPIC IMAGES: 1 FINDINGS: A single intraoperative fluoroscopic spot image reveals postsurgical changes of a total rig ht hip arthroplasty. There is no dislocation. IMPRESSION: Postsurgical changes of a total right hip arthroplasty ACT 112: Negative or not required by law. Electronically signed by: Fernando Aragon M.D. 01/08/2020 2:00 PM
[2020-01-08] MEDS ORDERED: PHENYLEPHRINE 100MCG/ML 5ML SYR ONE (14:11)
[2020-01-08] MEDS ORDERED: ePHEDrine sulfate 50 MG/ML SYR ONE (14:11)
--- NOTE | 2020-01-08 14:53 | Anesthesiology Progress Note ---
Date of Service January 08, 2020 Anesthesia Post Procedure Vital Signs Vital Signs: Temp Pulse Pulse Resp BP Pulse Ox 01/08/20 14:40 80 16 124/72 97 01/08/20 14:30 78 15 111/75 98 01/08/20 14:23 36.1 C L 77 13 119/78 98 01/08/20 11:10 37 C 77 18 132/93 97 Transfer of Care Handoff Completed per policy Notes Mental Status: alert / awake / arousable and participated in evaluation Patient Amnestic to Procedure: Yes Nausea / Vomiting: adequately controlled Pain: adequately controlled Airway Patency, RR, SpO2: stable & adequate BP & HR: stable & adequate Hydration State: stable & adequate Anesthetic Complications: no major complications apparent and Pt Satisfied with anesthetic care
--- NOTE | 2020-01-08 14:59 | XRay Report ---
SINGLE VIEW PELVIS; SINGLE VIEW RIGHT HIP CLINICAL HISTORY: Postoperative examination. FINDINGS: An AP portable view of the hips and pelvis with a crosstable lateral portable view of the r ight hip are obtained. A bipolar right hip arthroplasty is in near-anatomic alignment. A single corti enrique lag screw transfixes the acetabular cup. No acute fracture is identified. There are expected post operative changes overlying the right hip including skin clips, subcutaneous gas, a surgical drain, a nd soft tissue swelling. A left hip arthroplasty is in place. IMPRESSION: Expected postoperative findings status post right hip arthroplasty. No acute fracture is seen. ACT 112: Negative or not required by law. Electronically signed by: Murtaza Arrieta M.D. 01/08/2020 2:58 PM
[2020-01-08] MEDS: SODIUM CHLORIDE 0.9% 1000ML 1,000 ML IV SCH (15:10)
[2020-01-08] MEDS ORDERED: MAGNESIUM HYDROXIDE SUSP 30 ML UDC PO PRN (15:28)
[2020-01-08] MEDS ORDERED: HYDROmorphone INJ 0.5 MG/0.5 ML SYR IV PRN (15:28)
[2020-01-08] MEDS ORDERED: NALOXONE HCL 0.4 MG/1 ML VIAL/CARP IV PRN (15:28)
[2020-01-08] MEDS ORDERED: METOCLOPRAMIDE HCL INJ 5 MG/ML 2 ML VIAL IV PRN (15:28)
[2020-01-08] MEDS ORDERED: OXYCODONE HCL IR 5 MG TAB (IMMEDIATE RELEASE) PO PRN (15:28)
[2020-01-08] MEDS ORDERED: bisacodyL 10 MG SUPP PR PRN (15:28)
[2020-01-08] MEDS ORDERED: ALBUTEROL HFA 8 GM INHALER INH PRN (16:00)
[2020-01-08] MEDS: KETOROLAC 30 MG/ML VIAL IV SCH ×2 (16:20→21:38)
[2020-01-08] MEDS ORDERED: SENNA 8.6 MG TAB PO SCH (21:00)
[2020-01-08] MEDS: CEFAZOLIN 2000MG 2,000 MG/15 ML SYR IV SCH (21:36)
[2020-01-08] MEDS: ACETAMINOPHEN 500 MG TAB PO SCH (21:36)
[2020-01-08] MEDS: DOCUSATE SODIUM 100 MG CAP PO SCH (21:36)
[2020-01-08] MEDS: ASPIRIN 81 MG ECTAB PO SCH (21:37)
[2020-01-09] MEDS: SODIUM CHLORIDE 0.9% 1000ML 1,000 ML IV SCH (01:23)
[2020-01-09] MEDS: ACETAMINOPHEN 500 MG TAB PO SCH (05:20)
[2020-01-09] MEDS: CEFAZOLIN 2000MG 2,000 MG/15 ML SYR IV SCH (05:20)
[2020-01-09] MEDS: KETOROLAC 30 MG/ML VIAL IV SCH ×2 (05:21→10:58)
[2020-01-09 06:04] LABS: Basophils # (auto) 0.01 K/uL (0-0.2); Basophils % (auto) 0.1 %; Hematocrit (blood only) 40.2 % (42-52); Hemoglobin 13.5 g/dL (14.0-18.0); Immature Granulocytes # (auto) 0.06 K/uL (0.00-0.02); Immature Granulocytes % (auto) 0.3 %; Lymphocytes # (auto) 0.95 K/uL (1.2-3.4); Lymphocytes % (auto) 5.5 %; Mean Corpuscular Hemoglobin 31.7 pg (25-34); Mean Corpuscular Hgb Conc 33.6 g/dL (32-36); Mean Corpuscular Volume 94.4 fL (80-100); Mean Platelet Volume 9.8 fL (7.4-10.4); Monocytes # (auto) 0.93 K/uL (0.11-0.59); Monocytes % (auto) 5.4 %; Neutrophils # (auto) 15.23 K/uL (1.4-6.5); Neutrophils % (auto) 88.7 %; Platelet Count 247 K/uL (130-400); RDW Coefficient of Variation 12.8 % (11.5-14.5); RDW Standard Deviation 44.2 fL (36.4-46.3); Red Blood Count 4.26 M/uL (4.7-6.1); White Blood Count 17.18 K/uL (4.8-10.8)
[2020-01-09 06:34] LABS: BUN Creatinine Ratio 35.9 (10-20); Calcium 8.1 mg/dl (8.5-10.1); Creatinine Clr Calc Pharmacy 137.2 ml/min; Est GFR (African American) 125.5; Est GFR (Non-African American) 108.3; Potassium 4.3 mmol/L (3.5-5.1)
--- NOTE | 2020-01-09 07:07 | Orthopedic Progress Note ---
Date of Service January 09, 2020 Assessment & Plan (1) History of total right hip arthroplasty: Overall he is doing very well. Is not having too much pain in the right hip. He will be seen by physical therapy this morning for ambulation and range of motion exercises. He is on aspirin for DVT prophylaxis. He can be discharged home later this morning. He will follow-up with orthopedics in 2 weeks. Present on Admission?: Yes Subjective Isaiah was seen and examined at bedside this morning. Overall is doing very well. Is not having much pain in the right hip. He has been up and ambulating on it a little bit this morning. He has no complaints. Physical Exam Musculoskeletal: On physical examination of the right hip, the Saima VAC dressing is to suction. His leg lengths are equal. He has active dorsiflexion and plantarflexion of the right ankle. Sensation is intact throughout. Results & Data ([facility]) Vital Signs (Past 12 Hours) Vital Signs Temp Pulse Pulse Resp BP Pulse Ox 01/09/20 06:56 37.2 C 71 16 125/69 96 01/09/20 03:04 36.6 C 76 16 100/64 95 01/08/20 22:49 37.1 C 79 16 108/69 95 Laboratory Results H & H 12/29/19 01/09/20 Range/Units 08:18 04:57 Hgb 14.6 13.5 L (14.0-18.0) g/dL Hct 43.2 40.2 L (42-52) % Coagulation 12/29/19 Range/Units 08:18 INR 1.0 (0.9-1.1) Diagnostic Findings Postoperative x-rays of the right hip show the prosthesis to be in anatomic alignment without any evidence of fracture, dislocation, or loosening. PG Care Time/CCT Total # of Minutes Spent Total Time Spent with Patient: Total time spent is greater than 50% in coordination of care (as documented) at patient's floor/unit and/or counseling patient: Coding Level of Care Code None Diagnoses History of total right hip arthroplasty Z96.641
--- NOTE | 2020-01-09 07:09 | Discharge Summary ---
Date of Service January 09, 2020 Admission HPI Per Admitting Provider Isaiah is a pleasant 49-year-old male who was dealing with severe bilateral hip and groin pain. X-rays and clinical examination were diagnostic for primary osteoarthritis of both hips. I did a left total hip arthroplasty on him about 6 weeks ago on November 17. He did very well with that. He has elected to proceed with a right anterior total hip arthroplasty. Principal Diagnosis Right anterior total hip arthroplasty Discharge Data Allergies Allergy/AdvReac Type Severity Reaction Status Date / Time No Known Allergies Allergy Verified 01/08/20 11:09 Consultations 01/09/20 08:00 Consult Case Management - Discharge Planning Routine Procedures Performed Operation Date: 01/08/20 13:30 Actual Procedures p Right Anterior Total Hip Arthroplasty(Right) - Pravin Dinh DO Ordered Studies 01/08/20 13:30 FL fluoroscopy <1hr Routine FL hip RT 1V Routine Hospital Course (1) History of total right hip arthroplasty: On January 08, [address] [facility] and underwent a right anterior total hip arthroplasty without complication. He had a spinal anesthetic. Postoperatively he was started on aspirin for DVT prophylaxis and transferred to the general orthopedic floors. His hospital course was uneventful. On postop day #1 his H&H was stable and his pain was well controlled. He was able to participate well with physical therapy doing ambulation and range of motion exercises. He was then discharged home. He will follow-up with orthopedics in 2 weeks. Total Time Total Time Spent Total Time Spent (In Minutes): 20 Discharge Plan Discharge Items Patient Disposition: Home - Home Health Services Reason For Visit: RIGHT HIP DEGENERATIVE JOINT DISEASE Discharge Diagnosis: Right total hip arthroplasty Activity: As commented below Non-emergency contact: Surgeon Call non-emergency contact if: your wound has increased redness and your wound has increased drainage Follow-up/Referrals: Rakan Tate DO [Primary Care Provider] - Diet: Regular Addtl Attending Provider Instructions: Activity and Therapy Recommendations: * If you are using [facility] then therapy will be provided at your home until they feel you have accomplished all of your goals. * If you are using [facility] then Physical Therapy will be provided until they feel you are ready to start Outpatient Physical Therapy. * If you are not using home therapy then Outpatient Physical Therapy should start about 3-5 days from your day of surgery. Therapy will last about 6-10 weeks * You were shown a series of exercises in the hospital. Do these exercises three times each day including the exercises you were shown in physical therapy. * Get up and walk several times each day.~ For the first four weeks, try not to stand or walk for more than one hour at a time. If you do stand or walk for more than one hour, you will not hurt anything, but your leg will likely swell.~~ * As you feel comfortable, you may change from the walker or crutches to a cane and~then to independent walking. Medications: * Narcotic You will likely be sent home from the hospital with a prescription for the narcotic pain medication that worked best throughout your stay. * Aspirin Most patients will be required to take Aspirin 81mg twice a day for 6 weeks after surgery. This is obtained [id number] and a prescription is not necessary. * Other medications may be prescribed for specific circumstances. If you have any questions, please call the office at . * Resume previous home medications unless otherwise instructed TEDs/Elastic Stockings: The white elastic stockings help limit swelling and prevent blood clots from forming in your legs. The more you wear them, the more they work. Wear them for six weeks. Dressing Care: You will likely have a purple VAC dressing after surgery. This dressing will keep the incision dry and promote early healing. After about 7 days the batteries will wear out and the VAC will lose suction. Simply remove the dressing at that time and throw everything away, including the small suction machine. Then, you may leave the mary open to air or cover them with a dry dressing so they do not rub on your pants. The mary will be removed at your 2 week follow-up appointment. Showering: You may shower immediately with the purple VAC dressing. Let the shower spray hit your opposite side and slowly pat the plastic dry. Do not soak the dressing. After the dressing is removed you may shower normally with the mary exposed. Let soapy water run over the mary and pat them dry. Things To Watch For: * Drainage from the incision site that occurs more than one week after your surgery. * Increased redness at the incision site. * Fever above 102 degrees Fahrenheit. * Unusual chest pain or shortness of breath. * Call [facility] at with any of the above problems Follow-Up Visit: Follow-up with Dr. Dinh 2-3 weeks after your day of surgery. An appointment was probably scheduled when you signed-up for surgery in the office. If you have any questions call Office Instructions: More detailed instructions as well as Frequently Asked Questions were provided in a folder by our office when you signed-up for surgery. Please review these instructions when you get home. If you have any further questions or concerns, please feel free to call the office at [phone] Pending Studies at Discharge: No Stand-Alone Forms: [facility] Medications and DC Order Prescriptions: New oxycodone 5 mg Tablet 5 mg PO Q4H PRN (Reason: pain) Qty: 30 RF: 0 aspirin [Ecotrin Low Strength] 81 mg Tablet,Delayed Release (Dr/Ec) 81 mg PO BID 42 Days Qty: 0 RF: 0 Continued albuterol sulfate 90 mcg/actuation HFA aerosol inhaler See Rx Instructions INHALATION .COMPLEX PRN (Reason: SOB) Qty: 18 RF: 3 amoxicillin 500 mg tablet 2,000 mg PO ONCE Qty: 4 RF: 2 ibuprofen 200 mg Tablet 200 - 400 mg PO UD PRN (Reason: Pain) RF: 0 Discharge Orders: Discharge Order (Routine); Ordered 01/09/20 Ordered By: Pravin Dinh Admission Data Admit Date/Time: 01/08/20 14:25 Attending Provider: Pravin Dinh Admit Provider: Pravin Dinh Primary Care Provider: Rakan Tate Coding Level of Care Code D/C Day Management <30 mins Diagnoses History of total right hip arthroplasty Z96.641
[2020-01-09] MEDS ORDERED: dexAMETHasone 4 MG TAB PO SCH (08:00)
[2020-01-09] MEDS: DOCUSATE SODIUM 100 MG CAP PO SCH (08:34)
[2020-01-09] MEDS: ASPIRIN 81 MG ECTAB PO SCH (08:35)
[2020-01-09] MEDS ORDERED: MULTIVITAMIN TAB PO SCH (09:00)
== END 2020-01-09 11:22 | disposition home or self-care (01) ==
LOC: 3E 10:51 → ASU 10:51